=== PATIENT | female | born 1995 | race Caucasian/White ===

== ENCOUNTER 2016-12-26 12:54 | Emergency (ER) | payer OTHER ==
[2016-12-26 13:54] LABS: BILIRUBIN,URINE NEGATIVE (NEGATIVE); PH,URINE 7.5 PH (5.0-7.5); UA w/ MICROSCOPIC CHARGE YES
[2016-12-26 13:55] LABS: HCG UR QUAL NEGATIVE
[2016-12-26 14:00] LABS: UR CULTURE IF IND NOT INDICATED; WBC,URINE 0-3 /HPF (0-5)
[2016-12-26] MEDS ORDERED: SODIUM CHLORIDE 0.9% 1,000 ML IV ONE (14:11)
[2016-12-26 14:22] LABS: BASOPHILS % (AUTO) 0.2 %; EOSINOPHILS # (AUTO) 0.2 10^3/uL (0.0-0.7); EOSINOPHILS % (AUTO) 2.4 %; HCT - HEMATOCRIT 34.9 % (37.0-47.0); HGB - HEMOGLOBIN 11.6 g/dL (12.0-16.0); LYMPHOCYTES # (AUTO) 2.3 10^3/uL (1.5-3.5); LYMPHOCYTES % (AUTO) 25.1 %; MEAN CORPUSCULAR HEMOGLOBIN 26.5 pg (27.0-31.0); MEAN CORPUSCULAR HGB CONC 33.2 g/dL (32.0-36.0); MEAN CORPUSCULAR VOLUME 79.8 fL (81.0-99.0); MEAN PLATELET VOLUME 7.7 fL (7.9-10.8); MONOCYTES # (AUTO) 0.8 10^3/uL (0.0-1.0); MONOCYTES % (AUTO) 8.7 %; NEUTROPHILS # (AUTO) 5.8 10^3/uL (1.5-6.6); NEUTROPHILS % (AUTO) 63.6 %; RED BLOOD COUNT 4.37 10^6/uL (4.20-5.40); RED CELL DISTRIBUTION WIDTH 13.9 % (12.0-15.0); UNCORRECTED WHITE BLOOD COUNT 9.1 x10^3/uL; WHITE BLOOD COUNT 9.1 x10^3/uL (4.8-10.8)
[2016-12-26 14:44] LABS: ALBUMIN/GLOBULIN RATIO 1.3 (1.0-2.2); BILIRUBIN,TOTAL 0.3 mg/dL (0.2-1.0); CREATININE 0.8 mg/dL (0.4-1.0); POTASSIUM 3.6 mmol/L (3.5-5.0); TOTAL PROTEIN 6.8 g/dL (6.7-8.2)
--- NOTE | 2016-12-26 16:20 | ED Physician Documentation ---
PD HPI ABD PAIN - Stated complaint Stated Complaint: LOWER ABD CRAMPS - Chief complaint Chief Complaint: Abd Pain - History obtained from History obtained from: Patient - History of Present Illness Timing - onset: How many hours ago (2) Timing - duration: Hours (2) Timing - details: Still present Quality: Cramping Location: Other (lower abdomen) Associated symptoms: Vaginal bleeding. No: Fever, Nausea, Vomiting, Dysuria Similar symptoms before: Diagnosis (She reports history of similar symptoms 2 months ago with her menstrual period.) - Additional information Additional information: The patient is a 21-year-old female who presents with lower abdominal cramping pain that started about 2 hours prior to arrival. She denies fever, nausea, vomiting, or dysuria. She reports vaginal bleeding, consistent with her menstrual period which started yesterday. She reports having similar symptoms 2 months ago with her menstrual period. Review of Systems Constitutional: denies: Fever Nose: denies: Congestion Cardiac: denies: Chest pain / pressure Respiratory: denies: Dyspnea, Cough GI: reports: Abdominal Pain. denies: Nausea, Vomiting : reports: LMP (started yesterday.), Vaginal bleeding. 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 - Past Surgical History Past Surgical History: No - Present Medications Home Medications: Ambulatory Orders Medication Instructions Recorded Confirmed No Known Home Medications [No 12/26/16 12/26/16 Known Home Medications] - Allergies Allergies/Adverse Reactions: Allergies Allergy/AdvReac Type Severity Reaction Status Date / Time No Known Drug Allergies Allergy Verified 12/26/16 12:59 - Social History Does the pt smoke?: No Smoking Status: Never smoker Does the pt drink ETOH?: No Does the pt have substance abuse?: No PD ED PE NORMAL - Vitals Vital signs reviewed: Yes (normal) - General General: Alert and oriented X 3, Well developed/nourished - HEENT HEENT: Atraumatic, EOMI - Neck Neck: No adenopathy - Cardiac Cardiac: RRR, No murmur - Respiratory Respiratory: No respiratory distress, Clear bilaterally - Abdomen Abdomen: Normal bowel sounds, Soft, Non tender, No organomegaly - Female Female : Retail Account Representative present - Back Back: No CVA TTP - Derm Derm: No rash - Extremities Extremities: No edema, No calf tenderness / cord - Neuro Neuro: Alert and oriented X 3, No motor deficit, Normal speech PD ED PE EXPANDED - Female Female : Normal external, Vaginal Bleeding (Few mL's of dark blood in the vaginal vault.), Cultures sent, Retail Account Representative present. No: CMT, Adnexal Mass, Adnexal Tenderness Results - Vitals Vitals: Oxygen O2 Source Room air - Labs Labs: Laboratory Tests 12/26/16 12/26/16 12/26/16 13:45 14:16 14:16 WBC 9.1 RBC 4.37 Hgb 11.6 L Hct 34.9 L MCV 79.8 L MCH 26.5 L MCHC 33.2 RDW 13.9 Plt Count 326 MPV 7.7 L Neut # 5.8 Lymph # 2.3 [place] # 0.8 Eos # 0.2 Baso # 0.0 Absolute Nucleated RBC 0.00 Nucleated RBCs 0.0 Sodium 139 Potassium 3.6 Chloride 107 Carbon Dioxide 24 Anion Gap 8.0 BUN 14 Creatinine 0.8 Estimated GFR (MDRD) 91 Glucose 109 H Calcium 9.0 Total Bilirubin 0.3 AST 19 ALT 12 Alkaline Phosphatase 63 Total Protein 6.8 Albumin 3.8 Globulin 3.0 Albumin/Globulin Ratio 1.3 Lipase 36 Urine Color RED/BLOODY Urine Clarity CLOUDY Urine pH 7.5 Ur Specific [place] 1.020 Urine Protein 30 H Urine Glucose (UA) NEGATIVE Urine Ketones TRACE Urine Occult Blood LARGE H Urine Nitrite NEGATIVE Urine Bilirubin NEGATIVE Urine Urobilinogen 1 (NORMAL) Ur Leukocyte Esterase NEGATIVE Urine RBC TNTC H Urine WBC 0-3 Ur Squamous Epith Cells RARE Squamous Urine Bacteria Few Ur Microscopic Review INDICATED Urine Culture Comments NOT INDICATED Urine HCG, Qual NEGATIVE C.trachomatis RNA (TMA) Chlamydia/GC Comment N.gonorrhoeae RNA (TMA) 12/26/16 15:03 WBC RBC Hgb Hct MCV MCH MCHC RDW Plt Count MPV Neut # Lymph # [place] # Eos # Baso # Absolute Nucleated RBC Nucleated RBCs Sodium Potassium Chloride Carbon Dioxide Anion Gap BUN Creatinine Estimated GFR (MDRD) Glucose Calcium Total Bilirubin AST ALT Alkaline Phosphatase Total Protein Albumin Globulin Albumin/Globulin Ratio Lipase Urine Color Urine Clarity Urine pH Ur Specific [place] Urine Protein Urine Glucose (UA) Urine Ketones Urine Occult Blood Urine Nitrite Urine Bilirubin Urine Urobilinogen Ur Leukocyte Esterase Urine RBC Urine WBC Ur Squamous Epith Cells Urine Bacteria Ur Microscopic Review Urine Culture Comments Urine HCG, Qual C.trachomatis RNA (TMA) NOT DETECTED Chlamydia/GC Comment SEE NOTE N.gonorrhoeae RNA (TMA) NOT DETECTED PD MEDICAL DECISION MAKING - ED course Complexity details: reviewed results, re-evaluated patient, considered differential, d/w patient ED course: The patient's presentation is most consistent with menstrual cramping pain and associated vaginal bleeding. Urine test is negative, and her CBC is unremarkable, with a hemoglobin of 11.6. GC and chlamydia cultures are pending. Treatment in the emergency department included administration of normal saline 1 L. On reevaluation the patient's symptoms have resolved. I discussed with her and her female photography intern the likely cause of her symptoms, symptomatic treatment and outpatient follow-up, as well as potentially worrisome signs or symptoms that should prompt reevaluation. Departure - Departure Disposition: 01 Home, Self Care Clinical Impression: Vagina bleeding, Menstrual cramps Condition: Stable Instructions: ED Cramping Menstrual Follow-Up: [facility] [Provider Group] Comments: Drink plenty of fluids. You can use ibuprofen, up to 600 mg 3 times daily, if needed for pain or discomfort. Follow-up with your primary physician within 1-2 weeks. Call to schedule appointment. Return to the emergency department if you develop increasing pain, increasing vaginal bleeding, fever, persistent vomiting, or otherwise worsening symptoms. Discharge Date/Time: 12/26/16 16:31
[2016-12-26 16:31] VITALS: BP 110/63
== END 2016-12-26 16:31 | disposition home or self-care (01) ==
LOC: ED 12:54
DX: N93.9 Abnormal uterine and vaginal bleeding, unspecified (principal); N94.6 Dysmenorrhea, unspecified
CPT/HCPCS: 36415; 80053; 81001; 81003; 81025; 83690; 85025; 87086; 87491; 87591; 99283

== ENCOUNTER 2018-08-23 16:02 | Emergency (ER) | payer OTHER ==
[2018-08-23] MEDS ORDERED: MELOXICAM 7.5 MG TABLET PO STA (16:39)
--- NOTE | 2018-08-23 17:07 | ED Physician Documentation ---
History of Present Illness - Stated complaint Stated Complaint: RT KNEE PX - Chief complaint Chief Complaint: Ext Problem - History obtained from History obtained from: Patient - History of Present Illness Pain level max: 8 Pain level now: 8 - Additonal information Additional information: 23-year-old female presents to the emergency department with right knee pain that worsened today while running. This is been ongoing for the past year. Has not had any x-rays performed. Took Motrin without relief in the past, has not taken anything today. Does not recall any significant injuries. 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 - Past Surgical History Past Surgical History: No - Present Medications Home Medications: Ambulatory Orders Medication Instructions Recorded Confirmed Meloxicam [Mobic] 15 mg PO DAILY PRN #20 tablet 08/23/18 - Allergies Allergies/Adverse Reactions: Allergies Allergy/AdvReac Type Severity Reaction Status Date / Time No Known Drug Allergies Allergy Verified 08/23/18 16:21 - Social History Does the pt smoke?: No Smoking Status: Never smoker Does the pt drink ETOH?: No Does the pt have substance abuse?: No - Immunizations Immunizations are current?: Yes - POLST Patient has POLST: No PD ED PE NORMAL - Vitals Vital signs reviewed: Yes - General General: Alert and oriented X 3, No acute distress - HEENT HEENT: Moist mucous membranes - Neck Neck: Supple, no meningeal sign - Derm Derm: Warm and dry - Extremities Extremities: Other (Right knee - Small joint effusion on exam. No tenderness along the tibial plateau. ACL, MCL, PCL, LCL are intact. Unable to tolerate meniscus testing. Neurovascularly intact) - Neuro Neuro: Alert and oriented X 3 Results - Vitals Vitals: Vital Signs - 24 hr 08/23/18 08/23/18 16:20 17:49 Temperature 36.5 C Heart Rate 103 H 80 Respiratory 16 14 Rate Blood Pressure 112/69 122/82 H O2 Saturation 99 99 Oxygen O2 Source Room air - Rads (name of study) Right knee x-ray Radiology: Prelim report reviewed, EMP read contemporaneously, See rad report (No acute bony abnormality) PD MEDICAL DECISION MAKING - ED course Complexity details: reviewed results, re-evaluated patient, considered differential, d/w patient ED course: 23-year-old female presents to the emergency department with ongoing right knee symptoms. Worse with running today. Possible meniscus injury? Will have her follow-up with her doctor for further care. Normal x-ray here. Given crutches and the knee was wrapped. Patient counseled regarding signs and symptoms for which I believe and urgent re-evaluation would be necessary. Patient with good understanding of and agreement to plan and is comfortable going home at this [facility] e This document was made in part using voice recognition software. While efforts are made to proofread this document, sound alike and grammatical errors may occur. Departure - Departure Disposition: 01 Home, Self Care Clinical Impression: Knee pain, right Qualifiers: Chronicity: acute Qualified Code(s): M25.561 - Pain in right knee Condition: Good Instructions: ED Meniscal Injury Knee Poss Follow-Up: [facility] [Provider Group] - Within 1 week Prescriptions: Meloxicam [Mobic] 15 mg PO DAILY PRN #20 tablet PRN Reason: pain Comments: You may bear weight as tolerated. Follow-up with your doctor for further care. You may have a meniscus injury that is causing your ongoing symptoms. Your doctor may want to perform an MRI for this or a more detailed exam with orthopedics when you are swelling decreases. Forms: Activity restrictions Discharge Date/Time: 08/23/18 17:50
--- NOTE | 2018-08-23 17:19 | XRAY Report ---
Reason: R knee pain while running Procedure Date: 08/23/2018 Accession Number: [id number] / [id number] Procedure: XR - Knee 4 View RT CPT Code: FULL RESULT: EXAM: RIGHT KNEE RADIOGRAPHY EXAM DATE: 08/23/2018 04:44 PM. CLINICAL HISTORY: Right knee pain while running. COMPARISON: None. TECHNIQUE: 4 views. FINDINGS: Bones: Normal. No fractures or bone lesions. Joints: Normal alignment. Joint spaces are maintained. No significant arthritic change. No effusion. Soft Tissues: Normal. No soft tissue swelling. IMPRESSION: Normal knee radiography. [facility]
[2018-08-23 17:50] VITALS: BP 122/82
== END 2018-08-23 17:50 | disposition home or self-care (01) ==
LOC: ED 16:02
DX: M25.561 Pain in right knee (principal)
CPT/HCPCS: 73564; 99283; A9270

== ENCOUNTER 2019-04-28 11:15 | Emergency (ER) | payer OTHER ==
--- NOTE | 2019-04-28 12:26 | ED Physician Documentation ---
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 - Past Surgical History Past Surgical History: No - Present Medications Home Medications: Ambulatory Orders Medication Instructions Recorded Confirmed Meloxicam [Mobic] 15 mg PO DAILY PRN #20 tablet 08/23/18 Cyclobenzaprine [Flexeril] 10 mg PO TID PRN #10 tablet 04/28/19 Hydrocodone/Acetaminophen 1 - 2 each PO Q6H PRN #7 tablet 04/28/19 [Hydrocodon-Acetaminophen 5-325] Ibuprofen [Motrin] 800 mg PO Q8H PRN #30 tablet 04/28/19 - Allergies Allergies/Adverse Reactions: Allergies Allergy/AdvReac Type Severity Reaction Status Date / Time No Known Drug Allergies Allergy Verified 08/23/18 16:21 - Social History Does the pt smoke?: No Smoking Status: Never smoker Does the pt drink ETOH?: No Does the pt have substance abuse?: No - Immunizations Immunizations are current?: Yes - POLST Patient has POLST: No Departure - Departure Disposition: 01 Home, Self Care Clinical Impression: Back pain Qualifiers: Back pain location: low back pain Chronicity: acute Back pain laterality: left Sciatica presence: without sciatica Qualified Code(s): M54.5 - Low back pain Condition: Good Instructions: ED Neck Back Pain General Prescriptions: Cyclobenzaprine [Flexeril] 10 mg PO TID PRN #10 tablet PRN Reason: Spasms Hydrocodone/Acetaminophen [Hydrocodon-Acetaminophen 5-325] 1 - 2 each PO Q6H PRN #7 tablet PRN Reason: pain Ibuprofen [Motrin] 800 mg PO Q8H PRN #30 tablet PRN Reason: PAIN &/OR FEVER Comments: Return if you worsen, if you develop fevers, incontinence, or numbness around your groin. [place]. Forms: Activity restrictions <Tre Morales - Last Filed: 04/28/19 13:24> History of Present Illness - History obtained from History obtained from: Patient - History of Present Illness Timing: Today (She got up this morning and had worsening left flank pain throughout the day. It is nonradiating. She is never had this before. Its pretty constant. Is not associated with urinary symptoms, weakness, numbness, tingling, saddle anesthesia, or fevers. No incontinence.) Review of Systems Constitutional: denies: Fever, Chills GI: denies: Abdominal Pain, Nausea, Vomiting, Diarrhea : denies: Dysuria, Frequency PD ED PE NORMAL - Vitals Vital signs reviewed: Yes - General General: Alert and oriented X 3, No acute distress - Back Back: No spinal TTP, Other (She is tender over the left flank, seems muscular more than CVA, no midline or right-sided tenderness.) - Extremities Extremities: Other (The patient has equal and normal Achilles and patellar reflexes bilaterally. Normal sensation in all areas of the legs. Patient denies saddle anesthesia. Normal strength in flexion-extension at the ankles, knees, and flexion of the hips.) - Neuro Neuro: Alert and oriented X 3, Normal speech Results - Vitals Vitals: Vital Signs - 24 hr 04/28/19 11:23 Temperature 37 C Heart Rate 75 Respiratory 16 Rate Blood Pressure 112/64 O2 Saturation 97 Oxygen O2 Source Room air - Labs Labs: Laboratory Tests 04/28/19 12:55 Urine Color YELLOW Urine Clarity CLEAR Urine pH 7.5 Ur Specific [place] 1.020 Urine Protein NEGATIVE Urine Glucose (UA) NEGATIVE Urine Ketones NEGATIVE Urine Occult Blood NEGATIVE Urine Nitrite NEGATIVE Urine Bilirubin NEGATIVE Urine Urobilinogen 0.2 (NORMAL) Ur Leukocyte Esterase NEGATIVE Ur Microscopic Review NOT INDICATED Urine Culture Comments NOT INDICATED Urine HCG, Qual NEGATIVE PD MEDICAL DECISION MAKING - ED course ED course: This patient has seemingly uncomplicated musculoskeletal back pain. The patient has no "red flags." Specifically denies IV drug use, fevers, incontinence, saddle anesthesia. Spinal epidural abscess was considered, given that the patient has no fever, is not diabetic, has no spinal tenderness, does not use IV drugs, and has no bilateral neurologic symptoms, the diagnosis of spinal epidural abscess is considered exceedingly unlikely. After the administration of 60 mg of Toradol and 1 mg of Dilaudid IM oozing around comfortably. Departure - Departure Record reviewed to determine appropriate education?: Yes
[2019-04-28] MEDS ORDERED: HYDROmorphone 1 MG/ML CARPUJECT IM STA (12:33)
[2019-04-28] MEDS ORDERED: ONDANSETRON ODT 4 MG TABLET TL STA (12:33)
[2019-04-28] MEDS ORDERED: KETOROLAC 60 MG/2 ML VIAL IM STA (12:33)
[2019-04-28 13:09] LABS: BILIRUBIN,URINE NEGATIVE (NEGATIVE); CLARITY,URINE CLEAR (CLEAR); GLUCOSE, URINE (UA) NEGATIVE (NEGATIVE); KETONES,URINE (UA) NEGATIVE (NEGATIVE); LEUKOCYTE ESTERASE, URINE NEGATIVE (NEGATIVE); NITRITE,URINE NEGATIVE (NEGATIVE); OCCULT BLOOD,URINE NEGATIVE (NEGATIVE); PH,URINE 7.5 PH (5.0-7.5); PROTEIN,URINE NEGATIVE (NEGATIVE); UROBILINOGEN,URINE 0.2 (NORMAL) E.U./dL (NORMAL)
[2019-04-28 13:10] LABS: HCG UR QUAL NEGATIVE
[2019-04-28 13:31] VITALS: BP 110/62
== END 2019-04-28 13:30 | disposition home or self-care (01) ==
LOC: ED 11:15
DX: M54.5 Low back pain (principal)
CPT/HCPCS: 81003; 81025; 99283; J1170; Q0162; 81001; 87086